=== PATIENT | female | born 2005 ===

== ENCOUNTER 2024-09-17 11:15 | Outpatient (REF) | payer OTHER, SELFPAY ==
--- NOTE | ~2024-09-17 | US_ITS ---
EXAMINATION: US PELVIS CLINICAL INFORMATION: Pelvic pain COMPARISON: None available. TECHNIQUE: Ultrasound of the pelvis is performed using both transabdominal and transvaginal transducers along with Doppler. Transvaginal imaging is performed due to inadequate visualization transabdominally. FINDINGS: Uterus: The uterus is anteverted , anteflexed and measures 6.5 x 3.0 x 3.6 CM. The double wall endometrial thickness is 0.26 cm. There is an IUD well positioned within the endometrial canal. The uterus is smooth in contour and has normal myometrial echogenicity. No visible fibroid. Adnexa: Both ovaries are visualized. There is normal color flow to the adnexa. There is no ovarian torsion. There is no pelvic ascites or fluid collection. Right ovary measures 2.6 x 1.7 x 3.2 cm. It appears unremarkable. Left ovary measures 2.7 x 1.9 x 2.6 cm. It appears unremarkable There is minimal free fluid in the cul-de-sac. US/US pelvic and transvaginal IMPRESSION: IUD in correct position within endometrial canal. The uterus is unremarkable. Ovaries are unremarkable. Minimal free fluid in the cul-de-sac. Electronically signed by: Billy Marie MD 09/17/2024 03:06 PM [facility]
== END 2024-09-17 11:16 | disposition home or self-care (01) ==
LOC: HO.UMASIMG 11:15
PROVIDERS: Visit Provider Family Medicine
DX: R10.2 Pelvic and perineal pain (principal)
CPT/HCPCS: 76830; 76856

== ENCOUNTER → 2024-09-17 13:30 | Outpatient (BNV) | payer OTHER, SELFPAY | PROVIDERS: Visit Provider Radiology Diagnostic Radiology | DX: R10.2 Pelvic and perineal pain (principal); Z97.5 Presence of (intrauterine) contraceptive device | CPT/HCPCS: 76830; 76856 ==